=== PATIENT | male | born 1990 | race Hispanic/Latino ===

== ENCOUNTER 2019-04-06 08:50 | Emergency (ER) | payer BC, SELFPAY ==
[2019-04-06] MEDS ORDERED: levETIRAcetam 500 MG/100 ML PREMIX BAG ONE (09:35)
[2019-04-06 09:40] LABS: #Eosinphils 0.1 thou/uL (0.0-0.7); #Lymphocytes 1.5 thou/uL (1.20-3.40); #Monocytes 0.5 thou/uL (0.11-0.59); #Neutrophils 4.6 thou/uL (1.40-6.50); %Basophils 0.6 % (0.0-1.0); %Eosinophils 1.4 % (0.0-10.0); %Lymphocytes 22.6 % (21.0-51.0); %Monocytes 7.3 % (0.0-10.0); Hemoglobin 15.7 g/dL (14.0-18.0); Mean Corpuscular HGB CONC 33.1 g/dL (32.0-36.0); Mean Corpuscular Hemoglobin 31.5 pg (27.0-31.0); Mean Corpuscular Volume 95.3 fL (78.0-98.0); Mean Platelet Volume 8.5 fL (7.4-10.4); Platelet Count 218 thou/uL (130-400); RBC Distribution Width 10.7 % (11.5-14.5); Red Blood Cell (RBC) Count 4.98 mill/uL (4.70-6.10); White Blood Cell (WBC) Count 6.7 thou/uL (4.8-10.8)
[2019-04-06 10:01] LABS: ALT (SGPT) 21 U/L (8-55); AST (SGOT) 18 U/L (5-34); Albumin 4.2 g/dL (3.5-5.0); Alkaline Phosphatase 97 U/L (40-150); Anion Gap 12 mmol/L (10-20); BUN (Urea Nitrogen) 14 mg/dL (8.9-20.6); Bilirubin, Total 1.4 mg/dL (0.2-1.2); Calc. Creatinine Clearance 0 mL/min (70-130); Carbon Dioxide 26 mmol/L (22-29); Chloride 106 mmol/L (98-107); Estimated GFR-MDRD 89; Globulin 2.7 g/dL (2.4-3.5); Glucose 123 mg/dL (70-105); Potassium 3.8 mmol/L (3.5-5.1); Protein, Total 6.9 g/dL (6.0-8.3); Sodium 140 mmol/L (136-145)
== END 2019-04-06 10:39 | disposition home or self-care (01) ==
LOC: ERS 08:50
DX: R56.9 Unspecified convulsions (principal)
CPT/HCPCS: 36415; 80053; 85025; 93005; 96374; J1953

== ENCOUNTER 2019-05-03 09:00 | Emergency (ER) | payer BC ==
[2019-05-03] MEDS ORDERED: Lidocaine 1% w/Epinephrine 1:100K 20 ML VIAL ONE (09:43)
[2019-05-03] MEDS ORDERED: Adacel (T-DAP) 0.5 ML SYRINGE ONE (09:52)
[2019-05-03] MEDS ORDERED: Bacitracin Zinc 1 Packet ONE (10:09)
== END 2019-05-03 10:28 | disposition home or self-care (01) ==
LOC: ERS 09:00 → EDBD 09:00 → MERGE 09:00 → ERS 10:28
DX: S51.811A Laceration without foreign body of right forearm, initial encounter (principal); W26.0XXA Contact with knife, initial encounter
CPT/HCPCS: 12002; 90471; 90715; J2001

== ENCOUNTER 2019-05-04 19:18 | Emergency (ER) | payer BC ==
[2019-05-04] MEDS ORDERED: Bacitracin Zinc 1 Packet ONE (19:41)
[2019-05-04] MEDS ORDERED: Ibuprofen 800 MG TAB ONE (20:02)
[2019-05-04 20:03] LABS: #Eosinphils 0.1 thou/uL (0.0-0.7); #Lymphocytes 2.2 thou/uL (1.20-3.40); #Monocytes 0.5 thou/uL (0.11-0.59); #Neutrophils 5.1 thou/uL (1.40-6.50); %Basophils 0.4 % (0.0-1.0); %Eosinophils 1.1 % (0.0-10.0); %Lymphocytes 28.1 % (21.0-51.0); %Monocytes 6.4 % (0.0-10.0); Hemoglobin 16.4 g/dL (14.0-18.0); Mean Corpuscular HGB CONC 35.3 g/dL (32.0-36.0); Mean Corpuscular Hemoglobin 33.4 pg (27.0-31.0); Mean Corpuscular Volume 94.8 fL (78.0-98.0); Mean Platelet Volume 8.3 fL (7.4-10.4); Platelet Count 207 thou/uL (130-400); RBC Distribution Width 10.8 % (11.5-14.5); Red Blood Cell (RBC) Count 4.92 mill/uL (4.70-6.10); White Blood Cell (WBC) Count 7.9 thou/uL (4.8-10.8)
--- NOTE | 2019-05-04 20:10 | CT ---
CT BRAIN NONCONTRAST: DATE: 05/04/2019 HISTORY: 29-year-old male status post acute head trauma from fall due to seizure. COMPARISON: 06/06/2015 FINDINGS: There is no evidence of acute intra-axial or extra-axial hemorrhage. There is no midline shift or any other mass effect. There is no extra-axial fluid collection. There is no evidence of obstructive hydrocephalus. Calvarium is intact. Again noted are the patchy, streaky regions of encephalomalacia a nd gliosis in the bilateral vanessa radiata and centrum semiovale. There has been no significant interval change. IMPRESSION: 1. No acute intracranial findings. 2. Patchy regions of old insults (encephalomalacia and gliosis) in the bilateral cerebral deep white matter.
[2019-05-04 20:24] LABS: ALT (SGPT) 17 U/L (8-55); AST (SGOT) 17 U/L (5-34); Albumin 4.3 g/dL (3.5-5.0); Alkaline Phosphatase 96 U/L (40-150); Anion Gap 14 mmol/L (10-20); BUN (Urea Nitrogen) 17 mg/dL (8.9-20.6); Bilirubin, Total 0.8 mg/dL (0.2-1.2); Calc. Creatinine Clearance 0 mL/min (70-130); Calcium 9.1 mg/dL (7.8-10.44); Carbon Dioxide 23 mmol/L (22-29); Chloride 106 mmol/L (98-107); Estimated GFR-MDRD 81; Globulin 2.7 g/dL (2.4-3.5); Glucose 107 mg/dL (70-105); Potassium 4.3 mmol/L (3.5-5.1); Sodium 139 mmol/L (136-145)
[2019-05-04] MEDS ORDERED: levETIRAcetam 500 MG TAB PO SCH (23:30)
== END 2019-05-05 00:18 | disposition home or self-care (01) ==
LOC: ERS 19:18
DX: G40.909 Epilepsy, unspecified, not intractable, without status epilepticus (principal); Z91.14 Patient's other noncompliance with medication regimen; Z79.899 Other long term (current) drug therapy
CPT/HCPCS: 36415; 70450; 80053; 80177; 85025; 94760

== ENCOUNTER 2019-05-12 08:38 | Emergency (ER) | payer BC | END 2019-05-12 09:00 | disposition home or self-care (01) | LOC: ERS 08:38 | DX: S51.811D Laceration without foreign body of right forearm, subsequent encounter (principal); G40.909 Epilepsy, unspecified, not intractable, without status epilepticus; W26.0XXD Contact with knife, subsequent encounter ==

== ENCOUNTER 2019-09-09 23:12 | Emergency (ER) | payer BC ==
[2019-09-09] MEDS ORDERED: Ketorolac Tromethamine 30 MG/ML VIAL ONE (23:35)
== END 2019-09-10 00:20 | disposition home or self-care (01) ==
LOC: ERS 23:12
DX: M54.5 Low back pain (principal); G40.909 Epilepsy, unspecified, not intractable, without status epilepticus
CPT/HCPCS: 96372; 99283; J1885